=== PATIENT | male | born 1970 | race Caucasian/White ===

== ENCOUNTER 2017-07-09 08:01 | Day surgery (SDC) | payer OTHER ==
--- NOTE | 2017-07-09 07:13 | History and Physical Report ---
DATE: 07/09/2017. CHIEF COMPLAINT AND HISTORY OF CHIEF COMPLAINT: This patient presents with chronic remitting, relapsing multiple sclerosis. He was referred to this facility for a baclofen infusion pump or trial. PAST MEDICAL HISTORY: Multiple sclerosis, bladder dysfunction. PAST SURGICAL HISTORY: Appendectomy. MEDICATIONS ON ADMISSION: To be provided. ALLERGIES: None. REVIEW OF SYSTEMS: The patient is appropriate and in no acute distress. 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 SOCIAL HISTORY: Caffeine. FAMILY HISTORY: Coronary artery disease. PHYSICAL EXAMINATION: General: Height is 6 feet. Weight is 200 pounds. Vital Signs: Unavailable. HEENT: Within normal limits. Lungs: Clear. Heart: Regular rate and rhythm. Abdomen: Nontender. Musculoskeletal: Examination of the musculoskeletal system shows the patient is wheelchair dependent. His primary symptom pattern is lower extremity. Ambulation: No assistive device utilized. Neurologic: Cranial nerves are intact. IMPRESSION: CHRONIC REMITTING, RELAPSING MULTIPLE SCLEROSIS, ICD-10 CODE G35.0. PLAN: The patient is here for implantation of a baclofen infusion device to determine if the infusion of baclofen can be of any value in his overall symptom pattern. All of the potential risks, side effects, and complications have been carefully reviewed and discussed. The potential risks, side effects, and complications include spinal cord injury, nerve root injury, paralysis, and spinal headache. The patient understands and consents. The procedure will involve an overnight stay because of his disability. KEISHA JAY D.O. Date & Time JOB NUMBER: [id number] cc: Dr. Mirella FLEMING
[~2017-07-09 08:01] MED LIST: ACETAMINOPHEN 1,000 MG/100 ML BTL IV ONE; BACLOFEN 10 MCG in 0.9 % SODIUM CHLORIDE 10ML VIA 0.98 ML IT SCH; BACLOFEN 5,000 MCG in 0.9 % SODIUM CHLORIDE 500ML 490 ML IT SCH; BACLOFEN IV ONE; CEFAZOLIN 2 Gram 2 GM/50 ML BAG IVPB ONE; FAMOTIDINE 20MG TABLET PO ONE; HYDROMORPHONE HCL IV ONE; MECLIZINE 25 MG TABLET PO ONE; METOCLOPRAMIDE 10 MG TABLET PO ONE; SODIUM CHLORIDE 0.9% IV ONE
[2017-07-09] MEDS ORDERED: SENNOSIDES/DOCUSATE SODIUM UD CAPSULE PO PRN ×2 (10:58)
[2017-07-09] MEDS ORDERED: ACETAMINOPHEN 325 MG TAB PO PRN ×2 (10:58)
[2017-07-09] MEDS ORDERED: HYDROMORPHONE HCL 1 MG/ML CPJ IM PRN (10:58)
[2017-07-09] MEDS ORDERED: HYDROMORPHONE HCL 2 MG/ML VIAL IM PRN (10:58)
[2017-07-09] MEDS ORDERED: METOCLOPRAMIDE HCL 10 MG/2 ML VIAL IVP PRN (10:58)
[2017-07-09] MEDS ORDERED: DIPHENHYDRAMINE HCL 25 MG CAPSULE PO PRN ×2 (10:58)
[2017-07-09] MEDS ORDERED: DIPHENHYDRAMINE HCL IV 50 MG/ML VIAL IVP PRN ×2 (10:58)
[2017-07-09] MEDS ORDERED: OXYCODONE/APAP 10MG-325MG TABLET PO PRN ×2 (10:58)
[2017-07-09] MEDS ORDERED: AL HYDROX/MAG HYDROX 30ML UD PO PRN (10:58)
[2017-07-09] MEDS ORDERED: TEMAZEPAM 15 MG CAPSULE PO PRN ×2 (10:58)
[2017-07-09] MEDS ORDERED: METOCLOPRAMIDE 10 MG TABLET PO PRN (10:58)
[2017-07-09] MEDS ORDERED: HYDROCODONE/APAP 7.5/325MG TABLET PO PRN ×2 (10:58)
[2017-07-09] MEDS ORDERED: BUPIVACAINE 0.5% W/EPI MPF 30 ML VIAL IVP ONE (16:22)
[2017-07-09] MEDS ORDERED: LIDOCAINE 1% W/EPI 1:200,000 MPF 30ML SQ ONE (16:22)
[2017-07-09] MEDS ORDERED: CEFAZOLIN 1G VIAL IM ONE (16:22)
[2017-07-09] MEDS ORDERED: FENTANYL PF 100MCG/2ML VIAL IV ONE (16:25)
[2017-07-09] MEDS ORDERED: PROPOFOL 10 MG/ML VIAL IV ONE (16:25)
[2017-07-09] MEDS ORDERED: LIDOCAINE 2% MDV (20MG/ML) 20ML VIAL IV ONE (16:25)
[2017-07-09] MEDS ORDERED: MIDAZOLAM HCL 2MG/2ML VIAL IV ONE (16:25)
--- NOTE | 2017-07-09 16:50 | Operative Note - Ferro ---
DATE OF SURGERY: 07/09/17 PREOPERATIVE DIAGNOSIS: MULTIPLE SCLEROSIS, ICD-10 CODE = G35.0. OPERATION: 1. FLUOROSCOPICALLY-GUIDED ACCESS SPINAL SPACE AT L2/3. PLACEMENT OF THIN- WALLED SPINAL CATHETER T10. 2. DIAGNOSTIC MYELOGRAPHY WITH RADIOLOGIC SUPERVISION AND INTERPRETATION. 3. SPINAL DOSE BACLOFEN 10 MCG. 4. INCISION, SUBCUTANEOUS DISSECTION, AND ANCHORING OF SPINAL CATHETER TO SUPRASPINOUS FASCIA USING ANCHORING DEVICE AND NONABSORBABLE SUTURE. 5. INCISION, SUBCUTANEOUS DISSECTION, AND CREATION OF SUBCUTANEOUS POUCH, RIGHT POSTERIOR GLUTEAL MARGIN. 6. TUNNELING BETWEEN MIDLINE. PLACEMENT OF SPINAL CATHETER INTO POSTERIOR POUCH RESECTED TO INTERFACE SPINAL CATHETER WITH SECOND CATHETER COMPONENT BY WAY OF CONNECTOR. 7. TUNNELING SECONDARY CATHETER COMPONENT 6 CM SUPERIOR EXITING SKIN. INTERFACE EXTERNAL CATHETER TO EXTERNAL PUMP SET TO DELIVER BACLOFEN AT 72 MCG PER DAY. 8. CLOSURE OF MIDLINE INCISION VICRYL FOR FASCIAL AND SUBCUTICULAR VICRYL FOR SKIN. DERMABOND. CLOSURE OF RIGHT POSTERIOR POUCH, NYLON SUTURE. 9. EPIDURAL BLOOD PATCH AT L3/4, 20 ML AUTOLOGOUS BLOOD DRAWN STERILE TECHNIQUE , LEFT ANTECUBITAL, REINFORCING ALL DRESSINGS. 10. TRANSPORT PATIENT TO RECOVERY ROOM FLAT, PILLOW UNDER HEAD AND KNEES, STABLE. NO SIDE-EFFECTS FROM THE PROCEDURE OR SEDATION. SURGEON: KEISHA JAY D.O. ANESTHESIA: LOCAL SEDATION. 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 He is currently on 80 mg of oral Baclofen a day and will be started on 72 mcg spinal infusion after a 10 mcg bolus in the room. 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 PROCEDURE: Intravenous line, vital sign monitoring, IV sedation, prepped and draped in sterile technique, patient position prone. The spinal interspace at 4- 5 and 5-1 were abnormal, transitional 5-1, 3-4 and 2-3 normal levels. 3-4 for the blood patch. 2-3 for catheter placement. Skin infiltrated. A spinal needle using a paramedian approach beveled with a long axis A #15 gauge spinal needle beveled long axis inserted into the spinal space at L2-3 using AP and lateral imaging. With CSF, a thin-walled spinal catheter was advanced, positioned midbody T10. Diagnostic myelography was performed, flow characteristics appropriate for this space. A bolus of Baclofen 10 mcg given into the spinal space. The skin above and below the needle infiltrated, incision made, and subcutaneous dissection was conducted to the supraspinous fascia. A pursestring suture was placed around the needle. Needle removed. The pursestring suture tightened to stop CSF leak. An anchor was then used to secure the catheter to the supraspinous fascia with nonabsorbable suture. Catheter was clamped to stop CSF loss. At the right posterior gluteal margin, skin infiltrated, incision made , and subcutaneous dissection was conducted to form a small pouch. A tunneling tool was then used to carry subcutaneously this implanted catheter into the posterior pouch. This catheter was then resected and interfaced with a second catheter component by way of a connector. The second catheter component tunneled superior from this pouch exiting the skin. External catheter was then interfaced to an external pump, which was set to deliver Baclofen at 72 mcg per day. The midline incision was closed Vicryl for fascia, running subcuticular Vicryl for skin. Dermabond closure. The posterior pouch closed with nylon suture. At L3-4, one level below the dural puncture, skin infiltrated and an 18- gauge Tuohy needle with [id number] into the epidural space. 20 mL of autologous blood drawn sterile technique, left antecubital. Blood transferred to the field maintaining sterility. An epidural blood patch was then performed at this level with this blood. Needle removed. The dressings were placed securing the catheter and all connections under sterile dressing. He was transported to the Recovery Room flat, pillow under head and knees. He tolerated the entire procedure without difficulty. He was monitored until stable and transported to the Floor. He will be kept flat for four hours, slowly elevated for one, and then consider dischargeable by his request. DISCHARGE INSTRUCTIONS: 1. The sites will remain clean and dry. No showering or bathing in any way that would disrupt the dressings. If it happens, contact the clinic. 2. Standard medications resumed. His Baclofen, which is 80 mg a day will be cut to 40 mg a day using 20 mg b.i.d. dose protocol. He will stay on this and told to reduce it during the trial. He will take the antibiotic, Levaquin, 500 mg once a day for 14 days. If he has problems with the antibiotic, he should contact the clinic. All other medications should be continued. 3. The potential side-effects including spinal headache will be reported to the clinic. Increasing spasticity, myoclonus or stiffness should be reported to the clinic. A total of three reprogrammings can be scheduled; his first reprogramming in roughly three days, if necessary. All other instructions were provided, numbers to contact, problems given. cc: Dr. Mirella Ayala JOB NUMBER: [id number] MTDD
[2017-07-09] MEDS ORDERED: CEFAZOLIN 2 Gram 2 GM/50 ML BAG IVPB SCH (17:00)
[2017-07-09] MEDS ORDERED: BACLOFEN 10 MG TABLET PO SCH (18:00)
[2017-07-09] MEDS ORDERED: ACYCLOVIR 200 MG CAPSULE PO SCH (18:00)
[2017-07-09] MEDS ORDERED: TIZANIDINE HCL 4 MG TABLET PO SCH (22:00)
--- NOTE | 2017-07-11 09:30 | RADIOLOGY REPORT ---
EXAM: LUMBAR SPINE HISTORY: POSTOP. WIRE PLACEMENT. TECHNIQUE: A single portable view of the lumbar spine was obtained. Comparison: None. Encounter: Initial. FINDINGS: A catheter type device projects over the right lower quadrant. There is a stimulating wire partially seen, the proximal tip approximately projects over the L3 vertebral body. Correlate with intraoperative findings. IMPRESSION: POST SURGICAL CHANGE. CORRELATE WITH INTRAOPERATIVE FINDINGS. JOB NUMBER: [id number] MTDD
== END 2017-07-09 17:36 | disposition home or self-care (01) ==
LOC: SUR 08:01 → MEDSURG 11:17 → SUR 17:36
PROVIDERS: ATTEND Pain Medicine Interventional Pain Medicine
DX: G35 Multiple sclerosis (principal)
CPT/HCPCS: 62350; 00630; 72020; Q9967; J3010; J0690

== ENCOUNTER 2017-07-23 11:13 | Day surgery (SDC) | payer OTHER ==
--- NOTE | 2017-07-23 06:17 | History and Physical Report ---
DATE: 07/23/2017. CHIEF COMPLAINT AND HISTORY OF CHIEF COMPLAINT: This is a patient who is completing an implanted spinal catheter infusion trial with hydromorphone for multiple sclerosis. She is here for a full implant. PAST MEDICAL HISTORY: Multiple sclerosis, bladder dysfunction. PAST SURGICAL HISTORY: Appendectomy. MEDICATIONS ON ADMISSION: To be provided. ALLERGIES: None. REVIEW OF SYSTEMS: The patient is appropriate and in no acute distress. The remainder of the systems review shows myoclonus and spasticity. SOCIAL HISTORY: Caffeine. FAMILY HISTORY: Coronary artery disease. PHYSICAL EXAMINATION: General: Height is 6 feet. Weight is 200 pounds. Vital Signs: Not available. HEENT: Within normal limits. Lungs: Clear. Heart: Regular rate and rhythm. Abdomen: Nontender. Musculoskeletal: Examination of the musculoskeletal system shows the patient is wheelchair restricted with primary lower extremity spasticity and myoclonus. Sensory carias are intact. A series of layers of adhesive and dressing is enclosing and protecting an implanted spinal catheter which would appear to be intact. The spinal infusion device is ongoing. Neurologic: Cranial nerves are intact. IMPRESSION: 1. MULTIPLE SCLEROSIS, ICD-10 CODE G35.0. 2. IMPLANTED SPINAL CATHETER INFUSION TRIAL WITH BACLOFEN. PLAN: The patient is here for removal of the external catheter and implantation of a full programmable pump for baclofen infusion due to the success of the trial. The potential risks, side effects, and complications have been reviewed. We are considering a lumbar support brace post implant to help maintain appropriate posture, promote wound healing, and reduce the incidence of seroma formation. We will evaluate postoperatively. KEISHA JAY D.O. Date & Time JOB NUMBER: [id number] cc: Jesse Schafer M.D. MTDD
[~2017-07-23 11:13] MED LIST changes: -BACLOFEN 10 MCG in 0.9 % SODIUM CHLORIDE 10ML VIA 0.98 ML IT SCH; -BACLOFEN 5,000 MCG in 0.9 % SODIUM CHLORIDE 500ML 490 ML IT SCH; -HYDROMORPHONE HCL IV ONE
[2017-07-23] MEDS ORDERED: FENTANYL PF 100MCG/2ML VIAL IV ONE (14:00)
[2017-07-23] MEDS ORDERED: LIDOCAINE 1% W/EPI 1:200,000 MPF 30ML SQ ONE (14:00)
[2017-07-23] MEDS ORDERED: PROPOFOL 10 MG/ML VIAL IV ONE (14:00)
[2017-07-23] MEDS ORDERED: CEFAZOLIN 1G VIAL IM ONE (14:00)
[2017-07-23] MEDS ORDERED: MIDAZOLAM HCL 2MG/2ML VIAL IV ONE (14:00)
[2017-07-23] MEDS ORDERED: BUPIVACAINE 0.5% W/EPI MPF 30 ML VIAL IVP ONE (14:00)
[2017-07-23] MEDS ORDERED: LIDOCAINE 2% MDV (20MG/ML) 20ML VIAL IV ONE (14:00)
--- NOTE | 2017-07-24 15:13 | Operative Note - Ferro ---
DATE OF SURGERY: 07/23/17 PREOPERATIVE DIAGNOSES: 1. MULTIPLE SCLEROSIS, ICD-10 CODE = G35.0. 2. IMPLANTED SPINAL CATHETER INFUSION BACLOFEN TRIAL. OPERATION: 1. INCISION, SUBCUTANEOUS DISSECTION, AND REMOVAL OF EXTERNALIZED SPINAL CATHETER. 2. INCISION, SUBCUTANEOUS DISSECTION, AND REVISION OF INTERNAL SPINAL CATHETER WITH CATHETER CONNECTOR AND SECONDARY CATHETER COMPONENT. 3. INCISION, SUBCUTANEOUS DISSECTION, AND CREATION OF A SUBCUTANEOUS POUCH AT RIGHT POSTERIOR GLUTEAL MARGIN FOR PLACEMENT OF PUMP IDENTIFIED A MEDTRON[employer] 20 ML PROGRAMMABLE PRE-FILLED BACLOFEN AT 700 MCG PER ML. 4. PLACEMENT OF PUMP INTO POUCH. INTERFACE PUMP WITH REVISED CATHETER SECURING PUMP TO POSTERIOR FASCIA USING NONABSORBABLE SUTURE TWO POINTS. 5. PLACEMENT OF CURVED 24-GAUGE MUÑOZ NEEDLE TO ACCESS PORT PROGRAMMABLE PUMP ASPIRATING 1 ML OF CATHETER CONTENTS CLEARING CATHETER OF OPIOID AND BACLOFEN. 6. DIAGNOSTIC MYELOGRAPHY WITH RADIOLOGIC SUPERVISION INTERPRETATION CONFIRMING CATHETER PATENCY, FUNCTIONALITY, PUMP INTERNAL COMPONENT FUNCTIONALITY. 7. PROGRAMMING OF PUMP TO DELIVER BY CONTINUOUS INFUSION BACLOFEN AT 96 MCG PER DAY. 8. CLOSURE OF INCISION VICRYL FOR FASCIA, RUNNING SUBCUTICULAR VICRYL FOR SKIN, DERMABOND CLOSURE APPROXIMATING WOUND. SURGEON: KEISHA JAY D.O. ANESTHESIA: LOCAL SEDATION. ANESTHESIA PROVIDER: MARTHA MCBRIDE CRNA INDICATION: This patient presents with a history of multiple sclerosis. An implanted catheter spinal infusion trial Baclofen with 90+ percent control of spasticity and myoclonus and overall symptom pattern from his MS. Due to the failure of all other therapies including oral medications, he is here for implantation of a permanent system. PROCEDURE: Intravenous line, vital sign monitoring, IV sedation, prepped and draped in sterile technique, patient position on the operating table prone. Sterile prep. Sterile technique. All of the previous dressings were removed. The externalized catheter in place. The incision at the right posterior gluteal margin was infiltrated with local, incision made, and subcutaneous dissection was then conducted to the implanted catheter connection with the external catheter. The externalized catheter segment was cut and the catheter was removed by pulling away from the wound. The internal catheter was then revised, resected by way of a catheter component with a second catheter component that would interface to pump. The incision of the pouch was then widened and revised to accommodate the pump identified as a Medtronic 20 mL Programmable. The pump having been filled with Baclofen at 700 mcg per mL. The revised catheter was then interfaced to the pump. Antibiotic irrigation. Bovie for hemostasis. The pump was placed into the pouch and secured to the posterior fascia with nonabsorbable suture two points using pump eyelets. A curved 24-gauge Muñoz needle was then inserted into the access port and 1 mL of catheter contents was aspirated clearing the catheter of Baclofen and a CSF mixture. Diagnostic myelography was then performed through the access port under radiologic supervision interpretation. Contrast flow characteristics were appropriate. Catheter tip identified and myelogram flow characteristics noted. Functionality was then assured. The incision was then closed Vicryl for fascia, running subcuticular Vicryl for skin. The pump programmed to deliver by continuous infusion of Baclofen at 96 mcg per day. Dermabond closure was then placed approximating the edge of the wound. He was transported to the Recovery Room stable showing no side-effects from the procedure or the sedation. He was monitored until stable then prepared for discharge. DISCHARGE INSTRUCTIONS: 1. The sites will remain clean and dry although the Dermabond will allow showering in 24-48 hours. 2. Standard medications resumed. He will continue the Levaquin for five days. He will be evaluated in 5-7 days in the office for incisional sites. That appointment will be scheduled by the office and contact the patient at home. 3. Activity shall remain low until he returns to the office for incision check. Limit bend, lift, push, pull. Notify the office should the dressing come off and the site exposed. All other instructions provided, numbers to contact, problems given. He was then discharged. cc: Dr. Vu JOB NUMBER: [id number] MTDD
--- NOTE | 2017-07-24 19:44 | RADIOLOGY REPORT ---
EXAM: SPINE, 1 VIEW HISTORY: PAIN PUMP IMPLANT. TECHNIQUE: A single AP portable supine view of the spine including the lower thoracic and lumbar portions is obtained portably. COMPARISON: AP view of the spine dated 07/09/17. FINDINGS: An interspinal catheter is again noted in place. This appears to enter the spinal canal at the upper lumbar levels with its tip at the T10 level. This catheter is now connected to an electronic medication pump positioned in the right gluteal region. There are again noted degenerative changes scattered within the visualized spine , most pronounced at the lower lumbar levels where they are mild to moderate in degree. Mild levoconvex scoliosis centered at the L3-L4 level. IMPRESSION: 1. THE PREVIOUSLY DEMONSTRATED INTERSPINAL CATHETER REMAINS IN PLACE AND IS NOW CONNECTED TO AN ELECTRONIC MEDICATION PUMP AT THE LEVEL OF THE RIGHT GLUTEAL REGION. 2. DEGENERATIVE CHANGES SCATTERED WITHIN THE SPINE WITH LEVOCONVEX SCOLIOSIS OF THE LOWER LUMBAR SPINE REDEMONSTRATED. JOB NUMBER: [id number] MTDD
== END 2017-07-23 15:25 | disposition home or self-care (01) ==
LOC: SUR 11:13
PROVIDERS: ATTEND Pain Medicine Interventional Pain Medicine
DX: G35 Multiple sclerosis (principal)
CPT/HCPCS: 62362; 00300; 62367; 72020; Q9967; J3010; J0690; J0475; C1755